=== PATIENT | male | born 1950 | race Caucasian/White ===

== ENCOUNTER 2021-10-24 05:37 | Observation (INO) ==
[2021-10-24] MEDS ORDERED: VANCOMYCIN INJ 1,000 MG in SODIUM CHLORIDE 0.9% 250 ML IV ONE (06:00)
[2021-10-24] MEDS ORDERED: BUPIVACAINE MPF 0.25% 30 ML VIAL ONE ×2 (06:15→06:32)
[2021-10-24] MEDS ORDERED: DIAZEPAM 5 MG TABLET PO ONE (06:25)
[2021-10-24] MEDS ORDERED: GABAPENTIN 400 MG CAPSULE PO ONE (06:25)
[2021-10-24] MEDS ORDERED: ACETAMINOPHEN 500 MG TABLET PO ONE (06:25)
[2021-10-24] MEDS ORDERED: LACTATED RINGERS 1,000 ML IV SCH (06:30)
[2021-10-24] MEDS ORDERED: fentaNYL 100 MCG/2 ML VIAL ONE (06:36)
[2021-10-24] MEDS ORDERED: MIDAZOLAM 2 MG/2 ML VIAL ONE (06:36)
[2021-10-24] MEDS ORDERED: ceFAZolin 2,000 MG/50 ML DUPLEX IV ONE (07:00)
[2021-10-24] MEDS ORDERED: ePHEDrine 50 MG/ML VIAL ONE (07:51)
[2021-10-24] MEDS ORDERED: BUPIVACAINE SPINAL 0.75% 2 ML AMP SPINAL ONE (07:53)
[2021-10-24] MEDS ORDERED: LIDOCAINE 2% 5 ML VIAL ONE (07:53)
[2021-10-24] MEDS ORDERED: propofoL 200 MG/20 ML VIAL IV ONE (07:53)
[2021-10-24] MEDS ORDERED: ONDANSETRON 4 MG/2 ML VIAL ONE (07:53)
[2021-10-24] MEDS ORDERED: PHENYLEPHRINE 1 MG/10 ML SYRINGE IV ONE (08:55)
[2021-10-24 08:59] LABS: Bilirubin,Urine Negative (Negative); Blood, Urine Negative (Negative); Glucose,Urine (UA) Negative (Negative); Ketones,Urine Negative (Negative); Mucus,Urine Occasional /LPF (Occasional); Nitrite,Urine Negative (Negative); Protein,Urine Negative; RBC,Urine 2 /HPF (0-4); Urine Appearance CLEAR (Clear); Urine Color Yellow (Yellow); Urine Specific Gravity 1.019 (1.001-1.035); Urine Urobilinogen < 2.0 EU/DL (<2.0)
[2021-10-24] MEDS ORDERED: ONDANSETRON 4 MG/2 ML VIAL IV PRN ×2 (09:02→09:47)
[2021-10-24] MEDS ORDERED: MAGNESIUM HYDROXIDE SUSP 30 ML UDCUP PO PRN (09:02)
[2021-10-24] MEDS ORDERED: ZALEPLON 5 MG CAPSULE PO PRN (09:02)
[2021-10-24] MEDS ORDERED: MORPHINE 2 MG/1 ML SYRINGE IV PRN (09:02)
[2021-10-24] MEDS ORDERED: diphenhydrAMINE CAP 25 MG CAPSULE PO PRN (09:02)
[2021-10-24] MEDS ORDERED: BACITRACIN OINT 0.9 GM PACK TOP ONE (09:38)
[2021-10-24] MEDS ORDERED: MEPERIDINE 25 MG/1 ML VIAL IV PRN (09:47)
[2021-10-24] MEDS: LACTATED RINGERS 1,000 ML IV SCH ×2 (12:34→18:57)
[2021-10-24] MEDS: ceFAZolin 2,000 MG/50 ML DUPLEX IV SCH ×2 (12:43→21:06)
[2021-10-24] MEDS: KETOROLAC 15 MG/1 ML VIAL IV SCH ×3 (12:45→23:44)
[2021-10-24] MEDS: MORPHINE 2 MG/1 ML SYRINGE IV PRN ×2 (14:47→18:56)
[2021-10-24] MEDS ORDERED: PRAMIPEXOLE 1 MG TABLET PO SCH (21:00)
[2021-10-24] MEDS: DOCUSATE SODIUM 100 MG CAPSULE PO SCH (21:05)
[2021-10-25] MEDS ORDERED: FONDAPARINUX 2.5 MG/0.5 ML SYRINGE SUBCUT SCH (05:00)
[2021-10-25 05:27] LABS: Basophils % 0.1 % (0.0-0.8); Eosinophils % 0.2 % (0.00-10.9); Hematocrit 38.3 VOL% (42.0-52.0); Hemoglobin 12.5 GM/DL (14.0-18.0); Immature Granulocytes % 0.4 %; Immature Granulocytes Absolute 0.04 #; Lymphocytes # 1.1 10*3/uL (1.4-4.0); Lymphocytes % 11.9 % (21.2-54.2); Mean Corpuscular HGB Conc 32.6 GM/DL (32-36); Mean Corpuscular Volume 96.2 FL (87-102); Monocytes % 11.6 % (1.7-12.7); Neutrophils % 75.8 % (38.7-73.9); Platelet Count 137 T/CUMM (130-400); Red Blood Count 3.98 MC/CUMM (3.8-5.5); Red Cell Distribution Width 13.2 % (9.3-17.3); White Blood Count 9.2 T/CUMM (4-12)
[2021-10-25 05:58] LABS: Calcium 8.1 MG/DL (8.5-10.1); Potassium 3.9 MMOL/L (3.5-5.1)
[2021-10-25] MEDS ORDERED: KETOROLAC 15 MG/1 ML VIAL IV SCH (06:45)
[2021-10-25] MEDS: KETOROLAC 15 MG/1 ML VIAL IV SCH (06:46)
[2021-10-25] MEDS: LACTATED RINGERS 1,000 ML IV SCH (06:47)
[2021-10-25] MEDS ORDERED: CALCIUM (CARBONATE)/VITAMIN D 600 MG-400 UNIT TABLET PO SCH (08:00)
[2021-10-25] MEDS: DOCUSATE SODIUM 100 MG CAPSULE PO SCH (08:45)
[2021-10-25] MEDS ORDERED: NON-FORMULARY MEDICATION (Zinc 10 mg Tablet) PO SCH (09:00)
[2021-10-25] MEDS ORDERED: EZETIMIBE 10 MG TABLET PO SCH (09:00)
[2021-10-25] MEDS ORDERED: ATORVASTATIN 20 MG TABLET PO SCH (09:00)
[2021-10-25] MEDS ORDERED: FLUoxetine 20 MG CAPSULE PO SCH (09:00)
[2021-10-25] MEDS ORDERED: ZINC GLUCONATE 50 MG TABLET PO SCH (09:00)
[2021-10-25] MEDS ORDERED: PANTOPRAZOLE 40 MG TABLET PO SCH (09:00)
[2021-10-25] MEDS ORDERED: MULTIVITAMIN (BEROCCA) TABLET PO SCH (09:00)
[2021-10-25 11:32] VITALS: BP 109/55
== END 2021-10-25 15:09 | disposition home health service (06) ==
LOC: INTOOBSV 05:37 → N.SDSINP 05:37 → N.3E 10:51
PROVIDERS: ADMIT Orthopaedic Surgery; ATTEND Orthopaedic Surgery